=== PATIENT | female | born 1945 | race Caucasian/White ===

== ENCOUNTER 2025-05-31 19:53 | Emergency (ER) | payer MEDICARE, SELFPAY ==
[2025-05-31 19:56] VITALS: BP 153/66; PULSE 72; RESP 18; TEMP 36.1; O2SAT 100; BMI 40.3
--- NOTE | 2025-05-31 19:57 | ED.LOWEXIN ---
HPI - Extremity Injury (Lower) General Chief Complaint: Wound/Laceration Stated Complaint: Leg bleed open sore Time Seen by Provider: 05/31/25 20:51 Source: patient Mode of arrival: ambulatory Limitations: no limitations History of Present Illness ED Provider: Dr. Payne [facility] Narrative: 80-year-old female presented hospital today for right anders wound. Patient was at urgent care today when she had a sudden hematoma. This spontaneously ruptured at the urgent care. It started bleeding. She was sent here from urgent care due to the complexity of the laceration and skin tear. Tetanus shot updated. Related Data Previous Rx's ?Medication ?Instructions ?Recorded cephalexin 500 mg capsule 500 mg PO TID 7 days #21 caps 05/31/25 Allergies Allergy/AdvReac Type Severity Reaction Status Date / Time No Known Allergies Allergy Verified 05/31/25 19:59 Review of Systems Review of Systems: Pertinent review of systems as mentioned in HPI. All other system otherwise negative. PMFSH Past Medical History [facility] Narrative: Medical history as mentioned in [facility] Social History Social History Advance Directives: Yes Advance Directives Information Provided: No Advance Directives on File: No Do you have a plan to hurt others: No Plan Physical Exam Exam: Exam: General: Pleasant, no distress, interacting appropriately Extremities: There is a 4 cm skin tear on the right anders. CMS intact otherwise with some hematoma changes around the area. Neurological: Awake and alert, no facial droop noted Skin: Warm and dry Psychiatric: Appropriate mood and thoughts Vital Signs: Vital Signs: Last Vital Signs Temp 96.9 F 05/31/25 19:56 Pulse 72 05/31/25 19:56 Resp 18 05/31/25 19:56 BP 153/66 H 05/31/25 19:56 Pulse Ox 100 05/31/25 19:56 O2 Del Method Room Air 05/31/25 19:56 BMI result Body Mass Index 40.3 Course Course Course Narrative: This is a Rapid Medical Examination (RME) performed by Trista Talbert NP in triage. Full assessment, plan deferred to press operator heavy duty. 80-year-old female PMH significant for HTN, hypothyroidism, CAD s/p PCI, osteoporosis presents to the ED for evaluation of a right anders wound. Reports that this occurred a couple hours [employer] when she struck her leg opening a car door. A alcides of wind struck her into the right mid-anders. She quickly developed a hematoma, which then burst open spontaneously. No severe anders pain. Not on anticoagulants. Last Tdap about 8 years ago. Bleeding controlled upon arrival with dressing c/d/i. Went to urgent care 1st, dressing intact. +PP. +CSM. Plan: Tdap. Reassessment in main ED. Medications Administered Discontinued Medications Generic Name Dose Route Start Last Admin Trade Name Jarod PRN Reason Stop Dose Admin Diphtheria/Tetanus/Acell Pertussis 0.5 ml 05/31/25 20:01 05/31/25 20:32 Diphth,Pertus(Acell),Tet Adult 0.5 Ml Syringe IM 05/31/25 20:02 0.5 ml .ONCE ONE Administration Lidocaine/Epinephrine 10 ml 05/31/25 21:09 05/31/25 21:14 Lidocaine Hcl 1%/Epi 1:100,000 10 Ml Vial INFILTRATI 05/31/25 21:10 10 ml ONCE ONE Administration Medical Decision Making Medical Decision Making MDM Narrative: 80-year-old female presented hospital today for anders laceration. I attempted to approximate this skin tear and laceration of her right anders. Unfortunately her skin is too frail to hold any sutures at this time. I did try to evacuate some of the hematoma to allow better approximation of this skin laceration. I did attempt to throw deep absorbable sutures to take the tension off however unable to. Her laceration is related to the skin itself. However the skin is very frail. I did manage to place wants simple interrupted stitches to tie off the vessel for bleeding control. I did not place a simple interrupted stitches in the superior part of the laceration to help approximate the laceration. However further stitches on the laceration the skin was unable to hold the sutures. A decision was made to let this heal via secondary intention. Tdap updated. We will plan to prescribe patient is prophylactic antibiotic to take for this wound. Referral to wound care will be provided the patient. Wound care instructions provided the patient. Encouraged removal of the sutures in 10-14 days. Differential Diagnosis Differential Diagnoses: The differential diagnosis associated with the presentation includes A skin tear, laceration Procedures Laceration Laceration 1: Site: lower extremity Side (If applicable): right Size (cm): 4 Description: irregular Depth: simple, single layer Local Anesthetic: lidocaine 1% and with epi Amount of anesthesia used (mL): 10 Pre-repair: irrigated extensively Size (cm): 4-0 Number of sutures: 2 Technique: simple, interrupted and horizontal mattress Discharge Plan Discharge Clinical Impression: Avulsion of skin, Laceration Patient Disposition: Home, Self-Care Instructions: Care For Your Stitches (ED) Additional Instructions: two stitches were place. One simple interrupted. One horizontal mattress. Make sure the provider remove both in 10-14 days. Unfortunately your skin is too frail to bring together. I recommend letting this heal by second intention. If it starts bleeding apply pressure for 10-15 minutes. If it doesn't stop return to the ED. Avoid further trauma to the area. Avoid getting water in the wound for the first 48 hours. Change the dressing daily. Follow up with wound clinic. Prescriptions: New cephalexin 500 mg capsule 500 mg PO TID 7 Days Qty: 21 0RF Referrals: [facility] [Outside] Clinical Impression: Avulsion of skin Print Language: Bhutanese
[2025-05-31] MEDS: Diphth,Pertus(ACell),Tet Adult 0.5 ML SYRINGE IM (20:32)
[2025-05-31] MEDS: Lidocaine HCl 1%/Epi 1:100,000 10 ML VIAL INFILTRATI (21:14)
[2025-05-31 21:48] VITALS: BP 118/52; PULSE 64; RESP 18; TEMP 36.8; O2SAT 97
[2025-05-31 22:03] VITALS: BP 118/52; PULSE 64; RESP 18; TEMP 36.8; O2SAT 97
== END 2025-05-31 22:03 | disposition home or self-care (01) ==
PROVIDERS: Emergency Provider Student in an Organized Health Care Education/Training Program; PCP Student in an Organized Health Care Education/Training Program
DX: S81.811A Laceration without foreign body, right lower leg, initial encounter (principal); W22.09XA Striking against other stationary object, initial encounter; Y93.89 Activity, other specified; Y92.810 Car as the place of occurrence of the external cause; Y99.9 Unspecified external cause status; Z23 Encounter for immunization
CPT/HCPCS: 12002; 90471; 90715; 96372; 99283; 99284; J2004

== ENCOUNTER 2025-06-05 20:58 | Emergency (ER) | payer MEDICARE, SELFPAY ==
[2025-06-05 21:04] VITALS: BP 158/68; PULSE 73; RESP 20; TEMP 36.8; O2SAT 98; BMI 40.3
[2025-06-05 21:52] LABS: MANUAL DIFF FLAG NO
[2025-06-05 21:53] LABS: Hematocrit 37.6 % (37.0-47.0); Hemoglobin 11.9 g/dl (12.0-16.0); Imm Gran Abs Auto 0.03 X10*3/uL (0.00-0.03); Imm Gran Pct Auto 0.3 % (0.0-0.4); Lymphocytes Absolute Auto 3.4 X10*3/uL (1.2-4.9); Mean Corpuscular HGB Conc 31.6 g/dl (31.0-35.0); Mean Corpuscular Hemoglobin 31.5 pg (27.0-33.0); Mean Corpuscular Volume 99.5 fL (80.0-98.0); NRBC Abs Auto 0.000 X10*3/uL (0.0-0.012); NRBC Pct Auto 0.0 /100WBC (0.0-0.2); Platelet Count 250 X10*3/uL (160-400); Red Blood Count 3.78 X10*6/uL (4.20-5.50); White Blood Count 11.5 X10*3/uL (4.8-10.8)
[2025-06-05 22:09] LABS: Alanine Aminotransferase 29 U/L (0-31); Albumin Level 4.2 g/dL (3.5-5.0); Alkaline Phosphatase 92 U/L (39-117); Anion Gap 12 (12-20); Aspartate Amino Transferase 23 U/L (5-31); Blood Urea Nitrogen 11 mg/dL (9-16); Calcium 9.6 mg/dL (8.4-10.2); Carbon Dioxide 25 mmol/L (22-29); Chloride 110 mmol/L (96-108); Creatinine Clr Calc Pharmacy 82.4; Estimated Glomerular Filt Rate > 60; Potassium 3.7 mmol/L (3.3-5.1); Sodium 143 mmol/L (135-145); Total Protein 6.8 g/dL (6.5-8.0)
--- NOTE | 2025-06-05 22:20 | ED_ITS ---
HPI - Extremity Injury (Lower) General Chief Complaint: Extremity Injury, Lower Stated Complaint: right leg pain Time Seen by Provider: 06/05/25 22:05 Source: patient Mode of arrival: ambulatory Limitations: no limitations History of Present Illness ED Provider: Shannen Ortega APRN HPI Narrative: 80 yo female here with complaints of right leg swelling, pain, redness noted over the last 2 days. Patient reports she was seen here on May 31 after she hit her leg on a car door causing bruising and bleeding from the site. She went to urgent care but there was a large hematoma and they could not stop the bleeding so they referred her into the emergency room. While she was in the emergency room she had several sutures placed, the hematoma was evacuated and a dressing was placed over the site. Her tetanus was updated while she was here. She was sent home on cephalexin 500 mg t.i.d. which she has been taking. She has been seen by wound care and she has been applying topical mupirocin and keeping the wound clean and dry. She noticed over the last 1-2 days she has had some increasing swelling and redness surrounding the wound as well as some increase in pain. She denies any fevers, chills, weakness, nausea, vomiting. Related Data Previous Rx's ?Medication ?Instructions ?Recorded cephalexin 500 mg capsule 500 mg PO TID 7 days #21 cap s 05/31/25 doxycycline monohydrate 100 mg 100 mg PO BID #20 caps 06/05/25 capsule mupirocin 2 % topical ointment 1 appl topical BID #15 grams 06/05/25 (Centany) Allergies Allergy/AdvReac Type Severity Reaction Status Date / Time No Known Allergies Allergy Verified 06/05/25 21:10 Review of Systems 2 Review of Systems: Yes all other systems are reviewed and are negative Constitutional: Constitutional: Reports no additional constitutional complaints, Denies body ache(s), Denies chills, Denies fever(s), Denies headache(s) and Denies weakness Eyes: Eyes: Reports no additional eye complaints and Denies change in vision ENT: Reports system reviewed and no additional complaints, except as documented, Denies dizziness, Denies headache(s), Denies nasal congestion, Denies nasal discharge and Denies neck pain Cardiovascular: Cardiovascular: Reports no additional cardiovascular complaints, Denies chest pain, Reports leg edema and Denies dyspnea Respiratory: Respiratory: Reports no additional respiratory complaints, Denies cough and Denies dyspnea Gastrointestinal: Gastrointestinal: Reports no additional gastrointestinal complaints, Denies abdominal pain, Denies diarrhea, Denies nausea and Denies vomiting Genitourinary: Genitourinary: Reports no additional female genitourinary complaints and Denies urinary incontinence Musculoskeletal: Musculoskeletal: Reports no additional musculoskeletal complaints, Denies back pain, Denies arthralgias, Denies joint swelling, Denies neck pain, Denies numbness and Denies tingling Integumentary/Breasts: Skin/Breast: Reports system reviewed and no additional complaints, except as docu, Reports swelling, Reports erythema, Denies rash and Reports wounds Neurologic: Reports system reviewed and no additional complaints, except as documented, Denies Abnormal speech present, Denies dizziness, Denies headache(s), Denies numbness, Denies tingling and Denies weakness PMFSH Past Medical History Attestation statement: The following information was validated with the patient. Source: old records reviewed and nursing notes reviewed Social History Social History Advance Directives: No Advance Directives Information Provided: No Do you have a plan to hurt others: No Plan Physical Exam 2 Vital Signs: Vital Signs: Last Vital Signs Temp 98.2 F 06/05/25 22:49 Pulse 73 06/05/25 22:49 Resp 20 06/05/25 22:49 BP 158/68 H 06/05/25 22:49 Pulse Ox 98 06/05/25 22:49 O2 Del Method Room Air 06/05/25 22:49 BMI result Body Mass Index 40.3 Const: General: cooperative, healthy appearing, comfortable and no acute distress Orientation/consciousness: patient oriented x3 Limitations: no limitations HEENT: Head: Yes normal to inspection Ears: hearing grossly normal bilaterally General nose exam: Normal external nose present Face and sinus: Yes normal facial exam Mouth: Normal oral and palatal mucosa present Throat: Yes posterior oropharynx normal Eyes: General: appearance normal, both eyes and all related structures P upils: Equal, round and reactive pupils present Neck: Neck: Yes normal visual inspection Chest: Chest palpation & inspection: normal inspection of the chest Resp: Effort & Inspection: normal respiratory effort Auscultation: clear to auscultation bilaterally Cardio: Rate: regular rate Rhythm: regular rhythm Peripheral pulses: P eripheral pulses 2+ throughout GI: Inspection: Yes normal to inspection Palpation (GI): Soft to palpation and nontender Auscultation: normal bowel sounds Back/Spine/Pelvis: Thoracic/Lumbar Spine: thoracic and lumbar spine normal to inspection Skin: General skin exam: no rashes or lesions noted Neuro: General: patient oriented x3, no focal motor deficits and normal sensation to monofilament Cranial nerves: Yes Equal, round and reactive pupils present Cognition (Neuro): normal cognition Speech: No Abnormal speech present Gait exam (Neuro): Normal gait present Motor exam (neuro): 5/5 motor strength present throughout Extrem: Other: CMS intact distally. Compartments are soft and compressible. There is some pain on palpation. Bleeding is controlled. Medical Decision Making Medical Decision Making MDM Narrative: 80 yo female here with complaints of right leg swelling, pain, redness noted over the last 2 days. Patient reports she was seen here on May 31 after she hit her leg on a car door causing bruising and bleeding from the site. She went to urgent care but there was a large hematoma and they could not stop the bleeding so they referred her into the emergency room. While she was in the emergency room she had several sutures placed, the hematoma was evacuated and a dressing was placed over the site. Her tetanus was updated while she was here. She was sent home on cephalexin 500 mg t.i.d. which she has been taking. She has been seen by wound care and she has been applying topical mupirocin and keeping the wound clean and dry. She noticed over the last 1-2 days she has had some increasing swelling and redness surrounding the wound as well as some increase in pain. She denies any fevers, chills, weakness, nausea, vomiting. On exam patient does appear to have a wound infection that is consistent with cellulitis. She is nontoxic, afebrile and overall well-appearing. She is finishing her cephalexin. I will add additional antibiotic coverage. Wound care was provided. I will refill her mupirocin which she ran out of. She has a follow up appointment on June 15 with the wound care clinic. I recommend that she follow-up additionally with her primary care doctor next week for re- evaluation. I did review worrisome signs and symptoms with her of when she should return to the emergency room. Comfortable plan for discharge home. Differential Diagnosis Differential Diagnoses: The differential diagnosis associated with the presentation includes Wound infection, cellulitis Low suspicion for deeper space infection such as abscess, necrotizing fasciitis, compartment syndrome, osteomyelitis Admission/Observation Consideration of admission/observation: Escalation of care including admission/observation considered See discussion above Lab Data MDM Lab Attestation statement: I reviewed the patient's lab results. 06/05/25 21:45 06/05/25 21:45 Labs: Lab Results 06/05/25 Range/Units 21:45 WBC 11.5 H (4.8-10.8) X10*3/uL RBC 3.78 L (4.20-5.50) X10*6/uL Hgb 11.9 L (12.0-16.0) g/dl Hct 37.6 (37.0-47.0) % MCV 99.5 H (80.0-98.0) fL MCH 31.5 (27.0-33.0) pg MCHC 31.6 (31.0-35.0) g/dl RDW 13.5 (11.0-16.0) % Plt Count 250 (160-400) X10*3/uL MPV 9.4 (9.4-12.3) fL Immature Gran % (Auto) 0.3 (0.0-0.4) % Neut % (Auto) 54.8 (45-73) % Lymph % (Auto) 29.4 (20-40) % [place] % (Auto) 11.5 H (2-11) % Eos % (Auto) 3.4 (0-4) % Baso % (Auto) 0.6 (0-2) % Lymph # (Auto) 3.4 (1.2-4.9) X10*3/uL [place] # (Auto) 1.3 H (0.1-1.2) X10*3/uL Eos # (Auto) 0.4 (0.0-0.4) X10*3/uL Baso # (Auto) 0.1 (0.0-0.2) X10*3/uL Abs Immat Gran (auto) 0.03 (0.00-0.03) X10*3/uL Absolute Neuts (auto) 6.3 (2.0-8.3) x10*3/uL Absolute Nucleated RBC 0.000 (0.0-0.012) X10*3/uL Nucleated RBC % (auto) 0.0 (0.0-0.2) /100WBC ESR 19 (1-30) MM/HR Sodium 143 (135-145) mmol/L Potassium 3.7 (3.3-5.1) mmol/L Chloride 110 H (96-108) mmol/L Carbon Dioxide 25 (22-29) mmol/L Anion Gap 12 (12-20) BUN 11 (9-16) mg/dL Creatinine 0.67 (0.5-1.4) mg/dL Estim Creat Clear Calc 82.4 Estimated GFR > 60 Random Glucose 107 (60-115) mg/dL Calcium 9.6 (8.4-10.2) mg/dL Total Bilirubin 0.7 (0.0-1.0) mg/dL Direct Bilirubin 0.2 (0.0-0.5) mg/dL AST 23 (5-31) U/L ALT 29 (0-31) U/L Alkaline Phosphatase 92 (39-117) U/L C-Reactive Protein 0.30 (< or = 0.50) mg/dL Total Protein 6.8 (6.5-8.0) g/dL Albumin 4.2 (3.5-5.0) g/dL Independent Historian Clinical information obtained from an independent historian. History obtained from or confirmed by: Spouse Prescription Management I considered prescription management with: Antibiotic Discharge Plan Discharge Clinical Impression: Cellulitis Patient Disposition: Home, Self-Care Instructions: Cellulitis (ED) Additional Instructions: Continue to take cephalexin. Add doxycycline. Apply the topical antibiotic ointment and the wound care that we demonstrated to you in triage Follow-up with the Wound Clinic Return for increasing redness, swelling, fevers greater than 100.4, increasing pain, weakness or vomiting Prescriptions: New doxycycline monohydrate 100 mg capsule 100 mg PO BID Qty: 20 0RF mupirocin [Centany] 2 % ointment 1 appl topical BID Qty: 15 0RF No Action cephalexin 500 mg capsule 500 mg PO TID 7 Days Qty: 21 0RF Referrals: Luz Lindsay MD [Primary Care Provider, Primary Care] Interventions: ED Discharge Assessment Last Done: 06/05/25 22:49 Discharge Date/Time: 06/05/25 22:49 Print Language: Amharic
[2025-06-05 22:49] VITALS: BP 158/68; PULSE 73; RESP 20; TEMP 36.8; O2SAT 98
== END 2025-06-05 22:49 | disposition home or self-care (01) ==
PROVIDERS: Emergency Provider Emergency Medicine; PCP Student in an Organized Health Care Education/Training Program
DX: L03.115 Cellulitis of right lower limb (principal)
CPT/HCPCS: 36415; 80048; 80076; 85025; 85652; 86140; 99282

== ENCOUNTER → 2025-06-07 11:17 | Outpatient (BNV) | payer MEDICARE, SELFPAY | PROVIDERS: PCP Student in an Organized Health Care Education/Training Program; Visit Provider Radiology Diagnostic Radiology | DX: L03.115 Cellulitis of right lower limb (principal); R22.41 Localized swelling, mass and lump, right lower limb; S89.91XA Unspecified injury of right lower leg, initial encounter | CPT/HCPCS: 73590; 73701; 93971 ==

== ENCOUNTER → 2025-06-07 17:47 | Outpatient (BNV) | payer MEDICARE, SELFPAY | PROVIDERS: Admitting Provider Student in an Organized Health Care Education/Training Program; Emergency Provider Emergency Medicine; PCP Student in an Organized Health Care Education/Training Program; Visit Provider Student in an Organized Health Care Education/Training Program | DX: S81.811A Laceration without foreign body, right lower leg, initial encounter (principal); L03.90 Cellulitis, unspecified | CPT/HCPCS: 99233 ==

== ENCOUNTER → 2025-06-07 19:20 | Outpatient (BNV) | payer MEDICARE, SELFPAY | PROVIDERS: Admitting Provider Student in an Organized Health Care Education/Training Program; Emergency Provider Emergency Medicine; PCP Student in an Organized Health Care Education/Training Program; Visit Provider Internal Medicine | DX: R94.31 Abnormal electrocardiogram [ECG] [EKG] (principal); A41.9 Sepsis, unspecified organism | CPT/HCPCS: 93010 ==

== ENCOUNTER → 2025-06-08 07:00 | Outpatient (BNV) | payer MEDICARE, SELFPAY | PROVIDERS: Admitting Provider Student in an Organized Health Care Education/Training Program; Emergency Provider Emergency Medicine; PCP Student in an Organized Health Care Education/Training Program; Visit Provider Internal Medicine | DX: I42.2 Other hypertrophic cardiomyopathy (principal) | CPT/HCPCS: 93306 ==

== ENCOUNTER → 2025-06-08 11:05 | Outpatient (BNV) | payer MEDICARE, SELFPAY | PROVIDERS: Admitting Provider Student in an Organized Health Care Education/Training Program; Emergency Provider Emergency Medicine; PCP Student in an Organized Health Care Education/Training Program; Visit Provider Physician Assistant Surgical | DX: S81.811A Laceration without foreign body, right lower leg, initial encounter (principal); L03.90 Cellulitis, unspecified | CPT/HCPCS: 99222 ==